=== PATIENT | male | born 1965 | race Caucasian/White ===

== ENCOUNTER 2021-02-28 16:01 | Emergency (ER) | payer OTHER ==
[~2021-02-28] VITALS: Ht 185.4 cm; Wt 85.4 kg
[2021-02-28 16:05] VITALS: BP 151/96
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
== END 2021-02-28 18:26 | disposition home or self-care (01) ==
LOC: ED 18:05
DX: S02.32XA Fracture of orbital floor, left side, initial encounter for closed fracture (principal); S02.40DA Maxillary fracture, left side, initial encounter for closed fracture; F17.210 Nicotine dependence, cigarettes, uncomplicated; W22.8XXA Striking against or struck by other objects, initial encounter; Y93.89 Activity, other specified; Y92.009 Unspecified place in unspecified non-institutional (private) residence as the place of occurrence of the external cause; Y99.8 Other external cause status
CPT/HCPCS: 99283